=== PATIENT | female | born 1940 | race Caucasian/White ===

== ENCOUNTER 2019-04-28 06:02 | Inpatient (IN) | payer MEDICARE, OTHER ==
[~2019-04-28] VITALS: Ht 162.6 cm; Wt 82.4 kg
[2019-04-28] VITALS (15 sets, daily range): BP systolic 87–135; BP diastolic 38–83
[~2019-04-28 06:02] MED LIST: AMBIEN 5 MG TABL5 M1 PO; BELSOMRA10 MG PO; ELIQUIS5 MG PO; ISOSORBIDE MONO30 M1 PO; KLOR-CON 1010 MEQ PO; LIPITOR 20 MG T20 M1 PO; METFORMIN HCL500 M3 PO; NORVASC10 MG PO; PLAVIX 75 MG TA75 MG PO; SPIRONOLACTONE25 MG PO; TOPROL XL25 MG PO; ZESTRIL40 MG PO; ZETIA10 MG PO
[2019-04-28] MEDS ORDERED: MYRBETRIQ25 MG PO (06:37)
[2019-04-28] MEDS ORDERED: ASA81BEC PO (06:38)
[2019-04-28] MEDS ORDERED: LISINOPRIL-HCT1 EAC1 PO (06:41)
[2019-04-28 06:55] LABS: ABSOLUTE BASOPHILS 0.1 thou/uL (0.0-0.2); ABSOLUTE EOSINOPHILS 0.3 thou/uL (0.0-0.7); ABSOLUTE LYMPHOCYTES 1.1 thou/uL (0.8-5.3); ABSOLUTE MONOCYTES 1.1 thou/uL (0.0-1.2); ABSOLUTE NEUTROPHILS 8.6 thou/uL (1.6-8.1); BASOPHILS 0.8 %; EOSINOPHILS 2.3 %; HEMATOCRIT 32.9 % (37.0-47.0); HEMOGLOBIN 11.5 gm/dL (12.0-15.0); LYMPHOCYTES 9.8 %; MCHC 34.8 g/dL (28.0-37.0); MONOCYTES 9.7 %; MPV 7.6 fl. (7.2-11.1); NUCLEATED RBCS 0 /100WBC; PLATELET COUNT* 232 thou/uL (150-400); POLYS 77.4 %; RBC 3.83 mil/uL (4.20-5.00); RDW-CV 13.9 % (10.5-14.5); WBC 11.1 thou/uL (4.0-11.0)
[2019-04-28 07:13] LABS: CALCIUM 8.9 mg/dL (8.5-10.1); CREATININE 2.2 mg/dL (0.6-1.3)
[2019-04-28 07:25] LABS: POTASSIUM 2.7 mmol/L (3.5-5.1)
--- NOTE | 2019-04-28 13:45 | EKG ---
[place] [address] ELECTROCARDIOGRAM REPORT Name: LEBRON BAIN Room: [address] ADM IN M.R.#: [id number] Admission: 04/28/19 Attend Phys: Bela Bal Discharge: Date of : 40 Report #: [id number] THIS REPORT FOR: //name// [facility] Test Date: 2019-04-28 Test Time: 07:58:15 Pat Name: LEBRON BAIN Department: Room: [facility] Gender: F Beauty Culture Teacher: : 1940 Requested By: Brian Borges Order Number: [id number] Imtiaz MD: Tashi Valdovinos Measurements Intervals [place] Rate: 89 P: 52 VT: 167 QRS: -55 QRSD: 121 T: 98 QT: 402 QTc: 490 Interpretive Statements Sinus rhythm Consider left atrial enlargement LVH with IVCD, LAD and secondary repol abnrm Borderline prolonged QT interval No previous ECG available for comparison Electronically Signed On 04-28-2019 13:45:09 OPERATIONAL INTELLIGENCE ANALYST by Tashi Valdovinos [email or web address] <ELECTRONICALLY SIGNED> By: Tashi Valdovinos MD, [facility] 04/28/19 [id number] [id number] Tashi Valdovinos MD, [facility] /EPI
[2019-04-29] VITALS (19 sets, daily range): BP systolic 88–156; BP diastolic 38–105
[2019-04-29 04:27] LABS: HEMATOCRIT 28.1 % (37.0-47.0); HEMOGLOBIN 9.6 gm/dL (12.0-15.0); MCH 29.5 pg (26.0-34.0); MCHC 34.2 g/dL (28.0-37.0); MCV 86.3 fL (80.0-100.0); RBC 3.25 mil/uL (4.20-5.00); RDW-CV 14.2 % (10.5-14.5); WBC 12.9 thou/uL (4.0-11.0)
[2019-04-29 04:58] LABS: CREATININE 1.9 mg/dL (0.6-1.3)
[2019-04-29 05:03] LABS: POTASSIUM 3.8 mmol/L (3.5-5.1)
--- NOTE | 2019-04-29 14:12 | CON ---
[address] [address] CONSULTATION Name: LEBRON BAIN Room: [address] IN .R.#: [id number] Admission: 04/28/19 Attend Phys: Bela Bal Discharge: Date of : 40 Report #: [id number] THIS REPORT FOR: //name// CC: Ivonne Borges DATE OF SERVICE: 04/29/2019 HISTORY OF PRESENT ILLNESS: The patient is a pleasant 78-year-old female with coronary and cerebrovascular disease. She had a myocardial infarction this summer, but did not undergo acute intervention at that time. Since then, she had done well. She was noted to have a significant right carotid stenosis and underwent right carotid endarterectomy yesterday. Last 12 hours, she has demonstrated periods of sinus node dysfunction with pauses up to 5.5 seconds. These have been asymptomatic. They have ranged from 2-5.5 seconds. There is modest ecchymosis and small hematoma in the right neck region. The patient has underlying hypertension, hyperlipidemia and peripheral arterial disease. There is a history of paroxysmal atrial fibrillation. 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 At present, the patient is quite comfortable. She is recovering nicely from the procedure, but does note some right neck tenderness. Chronic therapy has included Ambien, metformin, clopidogrel, atorvastatin, isosorbide, lisinopril, spironolactone, amlodipine, aspirin, chlorthalidone and potassium. PAST MEDICAL HISTORY: Remarkable for the aforementioned risk factors of hypertension, diabetes and hyperlipidemia. There is no family history of premature coronary artery disease. PHYSICAL EXAMINATION: GENERAL: Demonstrates a not acutely distressed elderly female. VITAL SIGNS: Blood pressure 130/70, pulse rate 55, respirations 18. NECK: Jugular venous pressure is normal. There is a right carotid inflammation and evidence of the carotid endarterectomy performed on 04/28/2019. CHEST: Clear. CARDIAC: Reveals normal first and second heart sounds with a soft systolic murmur. ABDOMEN: Mildly obese. EXTREMITIES: Without edema [place] [address] CONSULTATION Name: LEBRON BAIN Room: [address] IN [facility]#: [id number] Admission: 04/28/19 Attend Phys: Bela Bal Discharge: Date of : 40 Report #: [id number] Rhythm strips were reviewed and they typically reveals sinus rhythm with pauses from 2-5.5 seconds, which remained asymptomatic. IMPRESSION: 1. Sick sinus syndrome with asymptomatic pauses. 2. Coronary artery disease, status post prior myocardial infarction. 3. Peripheral arterial disease. 4. Hypertension. 5. Paroxysmal atrial fibrillation. 6. Hyperlipidemia. RECOMMENDATIONS: 1. Continue to observe. She has sick sinus syndrome other than heart block and I would not place a temporary pacemaker at this time. 2. If she continues to manifest pauses of this magnitude, she will require permanent pacing with a dual-chamber pacemaker to be implanted if this persists. This was discussed in detail with the patient and family. CRITICAL CARE TIME: 32 minutes from 0930 to 1002 hours on 04/29/2019. <ELECTRONICALLY SIGNED> By: Jac Rodriges MD, FACC 04/29/19 1412 1004 1210Jac Rodriges MD, FACC /nt
[2019-04-30] VITALS (23 sets, daily range): BP systolic 94–177; BP diastolic 38–91
[2019-04-30 03:41] LABS: CREATININE 1.9 mg/dL (0.6-1.3); POTASSIUM 3.7 mmol/L (3.5-5.1)
[2019-05-01] VITALS (24 sets, daily range): BP systolic 80–156; BP diastolic 33–68
[2019-05-01 01:14] LABS: CREATININE 2.3 mg/dL (0.6-1.3); POTASSIUM 4.4 mmol/L (3.5-5.1)
[2019-05-01 01:17] LABS: APTT 25.4 Seconds (25.0-31.3); PROTIME 9.9 Seconds (9.20-11.50)
--- NOTE | 2019-05-01 14:33 | EKG ---
[place] [address] ELECTROCARDIOGRAM REPORT Name: LEBRON BAIN Room: [address] ADM IN M.R.#: [id number] Admission: 04/28/19 Attend Phys: Bela Bal Discharge: Date of : 40 Report #: [id number] THIS REPORT FOR: //name// [facility] Test Date: 2019-04-29 Test Time: 08:08:04 Pat Name: LEBRON BAIN Department: Room: [address] Gender: F Charge Lpn: 007 : 1940 Requested By: Brian Borges Order Number: [id number] Reading MD: Tashi Valdovinos Measurements Intervals [place] Rate: 61 P: 51 [place]: 168 QRS: -43 QRSD: 121 T: QT: 487 QTc: 491 Interpretive Statements Sinus rhythm LVH with IVCD, LAD and secondary repol abnrm Borderline prolonged QT interval Artifact in lead(s) I,II,III,aVL,aVF,V1,V2,V5,V6 Compared to ECG 04/28/2019 07:58:15 No significant changes Electronically Signed On 05-01-2019 14:33:00 CLINICAL BIOSTATISTICIAN by Tashi Valdovinos [email or web address] <ELECTRONICALLY SIGNED> By: Tashi Valdovinos MD, FACC 05/01/19 1433 Tashi Valdovinos MD, FACC /EPI
[2019-05-02] VITALS (9 sets, daily range): BP systolic 76–144; BP diastolic 36–86
[2019-05-02 05:06] LABS: HEMATOCRIT 28.6 % (37.0-47.0); MCH 30.2 pg (26.0-34.0); MCHC 34.9 g/dL (28.0-37.0); MCV 86.5 fL (80.0-100.0); MPV 7.5 fl. (7.2-11.1); RBC 3.3 mil/uL (4.20-5.00); RDW-CV 13.7 % (10.5-14.5); WBC 9.4 thou/uL (4.0-11.0)
[2019-05-02 05:28] LABS: CALCIUM 8.2 mg/dL (8.5-10.1); CREATININE 1.9 mg/dL (0.6-1.3)
[2019-05-02 05:49] LABS: POTASSIUM 2.9 mmol/L (3.5-5.1)
[2019-05-02 09:17] LABS: MAGNESIUM 2.1 mg/dL (1.8-2.4); PHOSPHORUS* 3.9 mg/dL (2.5-4.9)
[2019-05-02] MEDS ORDERED: NORCO 5-325 TA1 EAC2 PO (12:36)
--- NOTE | 2019-05-02 14:23 | EKG ---
[place] [address] ELECTROCARDIOGRAM REPORT Name: LEBRON BAIN Room: [address] DIS IN M.R.#: [id number] Admission: 04/28/19 Attend Phys: Bela Bal Discharge: 05/02/19 Date of : 40 Report #: [id number] THIS REPORT FOR: //name// [facility] Test Date: 2019-05-02 Test Time: 08:44:05 Pat Name: LEBRON BAIN Department: Room: [address] Gender: F Chlorination Operator: : 1940 Requested By: Tashi Valdovinos Order Number: [id number] Imtiaz MD: Khoi Sanders Measurements Intervals [place] Rate: 60 P: [place]: 136 QRS: -46 QRSD: 120 T: 10 QT: 452 QTc: 452 Interpretive Statements sinus rhythm Left anterior fascicular block Left ventricular hypertrophy Compared to ECG 04/29/2019 08:08:04 no change Electronically Signed On 05-02-2019 14:23:07 ELECTRIC MOTOR CONTROL ASSEMBLER by Khoi Sanders [email or web address] <ELECTRONICALLY SIGNED> By: Khoi Sanders MD, [facility] 05/02/19 1423 0844 0844 Khoi Sanders MD, [facility] /EPI
--- NOTE | 2019-05-02 14:24 | EKG ---
[place] [address] ELECTROCARDIOGRAM REPORT Name: LEBRON BAIN Room: [address] DIS IN M.R.#: [id number] Admission: 04/28/19 Attend Phys: Bela Bal Discharge: 05/02/19 Date of : 40 Report #: [id number] THIS REPORT FOR: //name// [facility] Test Date: 2019-05-02 Test Time: 08:45:15 Pat Name: LEBRON BAIN Department: Room: [address] Gender: F Pet Care Associate: : 1940 Requested By: Brian Borges Order Number: [id number] Imtiaz MD: Khoi Sanders Measurements Intervals [place] Rate: 60 P: [place]: 145 QRS: -46 QRSD: 122 T: 14 QT: 439 QTc: 439 Interpretive Statements sinus rhythm with short pr interval Nonspecific IVCD with LAD Left ventricular hypertrophy Electronically Signed On 05-02-2019 14:23:59 FILM SPLICER by Khoi Sanders [email or web address] <ELECTRONICALLY SIGNED> By: Khoi Sanders MD, [facility] 05/02/19 1423 Khoi Sanders MD, [facility] /EPI
--- NOTE | 2019-05-03 09:09 | CARD ---
[address] [address] CARDIAC CATH REPORT Name: LEBRON BAIN Room: [address]#: [id number] Admission: 04/28/19 Attend Phys: Bela Bal Discharge: 05/02/19 Date of : 40 Report #: [id number] THIS REPORT FOR: //name// APPROVED REPORT Study performed: 05/01/2019 15:44:01 Patient Status: In-Patient Room #: Event Personnel: Tashi Valdovinos Supervisor Of Instruction, Ivonne Ramirez Manager Alliance, Jessy Guzmán RTR Scrub, Jessy Guzmán RTJonathan Monitor Exam: Insertion of Dual Chamber Permanent Pacemaker Indications: Sick Sinus Syndrome/Tachy Fernando Syndrome The patient is a 78 year-old female with a history of Sick Sinus Syndrome and sinus node arrest. Conscious Sedation Start time: 1700 End Time: 1800 Fentanyl 75 mcg Versed 3 mg Implanted Devices: Cintricronik Eluna 8 DRT pro-MRI, model #052410, serial #[id number] dual-chamber pulse generator. Biotronik Solia S 53, model #719453, serial #[id number] ventricular lead. Biotronik Solia S 45, model #413993, serial #[id number] atrial lead. Procedure The patient underwent informed consent. We discussed the details of the procedure including the risks, which include, but not limited to bleeding, infection, vascular damage, cardiac perforation, and pneumothorax. She understood these risks and was willing to proceed. As such, she was brought to the EP/Cardiac Catheterization laboratory in a fasting and sedated state and prepped and draped in a sterile fashion, received IV antibiotics prior to initiation of the procedure and a venogram was performed showing patency of the left axillary vein. The patient underwent conscious sedation, with no related complications. The patient was brought to the EP/Cardiac Catheterization laboratory and the left chest and shoulder were prepped and draped in a sterile manner. During this case, Fluoroscopy and visipaque 20cc [place] [address] CARDIAC CATH REPORT Name: LEBRON BAIN Room: [address]#: [id number] Admission: 04/28/19 Attend Phys: Bela Bal Discharge: 05/02/19 Date of : 40 Report #: [id number] The left subclavian region was infiltrated with 2% LidocaineLidocaine with Epinephrine subcutaneous anesthesia. A transverse incision was made in the left upper chest cavity. The subcutaneous pocket was formed via blunt dissection. Percutaneous venous access was achieved and an introducer sheath was inserted into the left Subclavian vein. Sheaths were positions using the modified Seldinger technique Through the introducer sheaths the atrial and ventricular lead wires were positioned in the right atrial appendage and right ventricular apex respectively. Utilizing fluoroscopic guidance, the atrial and ventricular lead wires were advanced over the wires and positioned in the right atria and right ventricle respectively. Capturing and sensing thresholds were verified. Electrode Parameters P Wave: 4.0 mV R Wave: 8.0 mV Atrial Threshold: 0.5 V at 0.40 ms Ventricular Threshold: 0.4 V at 0.40 ms Atrial Resistance: 560 ohms Ventricular Resistance: 890 ohms Dual Chamber The atrial and ventricular leads were attached to the appropriate receptacles on the pulse generator and set screws firmly tightened to insure adequate contact and stability. The lead and pulse generator were placed into the subcutaneous pocket. Sharp and sponge counts were confirmed to be correct. The operative site was dressed in sterile fashion with skin affix and the patient was transferred to the floor in stable condition. Findings Mode: DDD Lower rate: 60 bpm Upper tracking rate: 130 bpm Conclusion 1. Sick sinus syndrome with sinus node arrest. 2. Successful placement of a dual-chamber pacemaker with atrial and ventricular [place] [address] CARDIAC CATH REPORT Name: LEBRON BAIN Room: [address] IN ..#: [id number] Admission: 04/28/19 Attend Phys: Bela Bal Discharge: 05/02/19 Date of : 40 Report #: [id number] 1. Follow-up site check in one week. 2. Follow-up pacemaker interrogation in one to 2 months. <ELECTRONICALLY SIGNED> By: Tashi Valdovinos MD, FACC 05/03/19908 8 8Micjhonatan Valdovinos MD, FACC /INF
--- NOTE | 2019-05-04 14:07 | PATH ---
[address] [address] PATHOLOGY RPT PROCEDURE Name: ALEXA BAIN Room: [address] IN .R.#: [id number] Admission: 04/28/19 Date of : 40 Discharge: 05/02/19 Report #: [id number] Path Case #: [id number] [facility] Accession Number: [id number] . 01 Material submitted: . PART A: lymph node - RIGHT CERVICAL ENLARGED LYMPH NODE. Modifiers: right PART B: carotid body - RIGHT CAROTID PLAQUE. Modifiers: right . 01 Clinical history: . Carotid stenosis right. . 02 Diagnosis: A. Right cervical enlarged lymph node: - Benign and hyperplastic lymph node. . B. Right carotid plaque: - Fibrointimal atherosclerotic plaque with extensive calcification and focal metaplastic bone formation. . (SHASTA:estevan; 05/02/2019) QLM 05/02/2019 1649 Local . 02 Comment: Specimen B reviewed with Dr. Joanna Dickey (hematopathologist) who agrees with the diagnosis. . This case was prepared and proofread by Dr. Harlan Boss and electronically released by Dr. Joanna Dickey. . (SHASTA:[facility]; 05/02/2019) . 02 Electronically signed: . Joanna Dickey MD, Pathologist NPI- [id number] . 01 Gross description: . A. Received in formalin labeled "Alexa Bain, right cervical enlarged lymph node," is a roughly ovoid segment of lobular, pale olmos to hemorrhagic soft tissue with scant attached yellow adipose tissue measuring 1.9 x 0.7 x 0.6 cm in greatest dimensions. Serial sectioning reveals pale olmos to hemorrhagic cut surfaces. The specimen is serially sectioned and submitted entirely in cassette A1. . B. Received in formalin labeled "Alexa Bain, right carotid plaque," is an irregular, elongate segment of yellow-olmos to hemorrhagic, rubbery to calcified tissue measuring 2.2 x 0.9 x 0.7 cm in greatest dimensions. Serial sectioning through the specimen reveals partially calcified, yellow-olmos to hemorrhagic cut surfaces. [place] [address] PATHOLOGY RPT PROCEDURE Name: ALEXA BAIN Room: [address] IN M.R.#: [id number] Admission: 04/28/19 Date of : 40 Discharge: 05/02/19 Report #: [id number] Path Case #: [id number] entirely in cassette B1, following decalcification. (DAC; 05/01/2019) XDC/XDC 05/01/2019 1007 Local . 02 Pathologist provided ICD-10: I65.21, R59.9 . 02 CPT . 962556, 669278, 107940 Specimen Comment: A courtesy copy of this report has been sent to [phone], [phone] Specimen Comment: [phone], Specimen Comment: Report sent to ,DR COMBS / DR CARDENAS Performed at: [address] [facility] [address], [place] [id number] MD Jonathan Dhaliwal MD Phone: [phone] Performed at: 02 [facility] [place] [address] [facility] CenterBur[place], [place] [id number] MD Manuel Boss MD Phone: [phone]
--- NOTE | 2019-05-05 10:12 | OP ---
[facility] [address] [place] [address] OPERATIVE REPORT Name: TAYALEBRON L Room: [address] IN .R.#: [id number] Admission: 04/28/19 Attend Phys: Bela Bal Discharge: 05/02/19 Date of : 40 Report #: [id number] THIS REPORT FOR: //name// CC: Ivonne Borges DATE OF SERVICE: 04/28/2019 PREOPERATIVE DIAGNOSIS: Severe right internal carotid artery stenosis. POSTOPERATIVE DIAGNOSIS: Severe right internal carotid artery stenosis. PROCEDURE: 1. Right carotid endarterectomy with patch angioplasty. 2. Intraoperative ultrasound with interpretation. FINDINGS ON ULTRASOUND: 1. Normal waveform velocity identified within the common and internal carotid arteries. 2. No flaps or defects identified in blanchard-scale imaging. 3. Patent flow identified in both the external and internal carotid artery on color flow imaging. SURGEON: Daquan Caceres MD FAMILY SUPPORT SPECIALIST: Rusty Trinidad, surgical manager. COMPLICATIONS: None. ESTIMATED BLOOD LOSS: 150 mL. SPECIMEN: Includes plaque as well as enlarged lymph node identified during dissection sent for permanent sectioning. ANESTHESIA: General. INDICATIONS FOR PROCEDURE: The patient is a very pleasant 78-year-old white female who recently had an WI. During workup, she was identified as having severe right internal carotid artery stenosis. After consultation with physical anthropologist, it was felt that she is not safe to undergo right carotid endarterectomy. Informed consent was obtained from the patient with risks including but not limited to bleeding, infection, need for further surgery, pain, , heart attack, stroke, cranial nerve injury. The patient understood these risks and was agreeable to proceed. [address] [address] OPERATIVE REPORT Name: LEBRON BAIN Marilou Room: [address]#: [id number] Admission: 04/28/19 Attend Phys: Bela Bal Discharge: 05/02/19 Date of : 40 Report #: [id number] DESCRIPTION OF PROCEDURE: The patient was taken to the OR and placed in supine position. General anesthesia was initiated. Right neck and chest were prepped and draped. Timeout was performed. I created a transverse incision in the patient's right neck. Sharp and blunt dissections were carried down along the anterior border of the sternocleidomastoid muscle. I divided the facial vein. I entered the carotid sheath. I controlled the common carotid artery as well as the branches of the internal and external carotid arteries. I created a longitudinal arteriotomy from the common carotid artery onto the internal carotid artery. I placed a 12 shunt without difficulty. I performed endarterectomy in standard fashion using a York elevator and a pair of pickups. I performed eversion endarterectomy of the external carotid artery. I got a feathered edge which leading into the internal carotid artery. I took my time to remove the bits and pieces of plaque from posterior wall. I closed the arteriotomy with a bovine pericardial patch and a running 6-0 Prolene suture. At the completion of the repair, there was adequate hemostasis and excellent blood flow into the internal and external carotid arteries. I performed intraoperative ultrasound with the findings noted above. I corrected the heparin with protamine, controlled bleeding as needed with electrocautery, ties, clips and Su. I closed the wound in multiple layers using 2-0 Vicryl, 3-0 Vicryl and Monocryl for the skin. Incision was dressed with Dermabond. The patient was taken alert and awake to recovery room in good condition, moving all extremities without evidence of TIA or stroke. <ELECTRONICALLY SIGNED> By: Daquan Caceres MD 05/05/19 1012 1006 1026Daquan Caceres MD /nt
== END 2019-05-02 14:21 | disposition home or self-care (01) | DRG 38 ==
LOC: M.TBA 06:02 → M.ICU 06:02 → M.PRE 06:30 → M.ICU 11:29 → M.PRE 16:50 → M.ICU 05-01 16:45
PROVIDERS: Family Medicine; Internal Medicine; ADMIT Internal Medicine
PROC: 03CK0ZZ Extirpation of Matter from Right Internal Carotid Artery, Open Approach (ICD-10-PCS; principal; 2019-04-28)
PROC: 05HY33Z Insertion of Infusion Device into Upper Vein, Percutaneous Approach (ICD-10-PCS; principal; 2019-04-28)
PROC: 03UK0JZ Supplement Right Internal Carotid Artery with Synthetic Substitute, Open Approach (ICD-10-PCS; principal; 2019-04-28)
PROC: 02HK3JZ Insertion of Pacemaker Lead into Right Ventricle, Percutaneous Approach (ICD-10-PCS; 2019-05-01)
PROC: 0JH606Z Insertion of Pacemaker, Dual Chamber into Chest Subcutaneous Tissue and Fascia, Open Approach (ICD-10-PCS; 2019-05-01)
PROC: 02H63JZ Insertion of Pacemaker Lead into Right Atrium, Percutaneous Approach (ICD-10-PCS; 2019-05-01)
DX: I65.21 Occlusion and stenosis of right carotid artery (principal); D68.69 Other thrombophilia; N17.9 Acute kidney failure, unspecified; I48.0 Paroxysmal atrial fibrillation; I49.5 Sick sinus syndrome; I10 Essential (primary) hypertension; E78.5 Hyperlipidemia, unspecified; Z96.1 Presence of intraocular lens; E11.51 Type 2 diabetes mellitus with diabetic peripheral angiopathy without gangrene; I25.10 Atherosclerotic heart disease of native coronary artery without angina pectoris; F17.210 Nicotine dependence, cigarettes, uncomplicated; D72.829 Elevated white blood cell count, unspecified; Z79.01 Long term (current) use of anticoagulants; Z79.82 Long term (current) use of aspirin; Z79.84 Long term (current) use of oral hypoglycemic drugs; Z79.899 Other long term (current) drug therapy; Z88.0 Allergy status to penicillin; I25.2 Old myocardial infarction; Z88.8 Allergy status to other drugs, medicaments and biological substances; Z90.710 Acquired absence of both cervix and uterus; Z90.89 Acquired absence of other organs; Z95.820 Peripheral vascular angioplasty status with implants and grafts; Z82.49 Family history of ischemic heart disease and other diseases of the circulatory system